=== PATIENT | female | born 1955 | race Hispanic/Latino ===

== ENCOUNTER → 2019-05-16 | Day surgery (SDC) | payer MEDICARE ==
[2019-05-15 10:31] LABS: BASOPHILS % 0.6 % (0.0-1.0); EOSINOPHILS # (AUTO) 0.2 (0.0-0.4); HEMATOCRIT 40.7 % (34.2-44.1); HEMOGLOBIN 13.6 g/dL (12.0-16.0); LYMPHOCYTES % 30.3 % (18.0-39.1); MEAN CORPUSCULAR HEMOGLOBIN 31.1 pg (28-32); MEAN CORPUSCULAR HGB CONC 33.4 g/dL (31-35); MEAN CORPUSCULAR VOLUME 92.9 fL (81-99); MONOCYTES # (AUTO) 0.6 (0.2-0.8); MONOCYTES % 9.3 % (4.4-11.3); NEUTROPHILS # (AUTO) 3.8 (2.1-6.9); NEUTROPHILS % 56.5 % (38.7-80.0); PLATELET COUNT 307 x10e3/uL (140-360); RED BLOOD COUNT 4.38 x10e6/uL (3.6-5.1); RED CELL DISTRIBUTION WIDTH 13.6 % (11.7-14.4)
--- NOTE | 2019-05-15 10:43 | Diagnostic Imaging Report ---
Chest, PA and lateral. History: Preoperative evaluation for neurologic surgery. Comparison: None available. Discussion: The cardiomediastinal silhouette and pulmonary vasculature are within normal limits. The thoracic aorta demonstrates atherosclerotic calcifications. The lungs are clear without evidence of consolidation or effusion. There are no acute osseous abnormalities. IMPRESSION: No radiographic evidence of acute cardiopulmonary abnormality. Signed by: Jim Aguilar MD on 05/15/2019 10:40 AM
[~2019-05-16] MED LIST: AMLODIPINE BESYL5 MG PO; CEFTRIAXONE SOD 1 GM/NS 50 ML 50 ML IV ONE; DOCUSATE SODIU100 MG PO; FENTANYL CITRATE/PF 100MCG/2 ML INJ ONE; HYDROXYCHLOROQ200 MG PO; IOPAMIDOL 300MG/ML 50ML INFUS..BTL IV ONE; LIDOCAINE HCL 2% LOCAL INJ 5 ML SDV VIAL INJ ONE; LOSARTAN POTASS25 MG PO; MELOXICAM7.5 MG PO; PANTOPRAZOLE SO40 MG PO; PROPOFOL IV EMULSION 10 MG/ML 20 ML VIAL ONE
--- OUTSIDE RECORDS SUMMARY | 2019-05-16 06:49 | XMS REPORT ---
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 Allergies, Adverse Reactions, Alerts This patient has no known allergies or adverse reactions. Medications This patient has no known medications. Results Test Description Test Time Test Comments Text Results Atomic Results Result Comments CHEST 2 VIEWS 2019-05-15 10:39:00 [facility] [address] [address] Patient Name: REGIS LOMELI MR #: [id number] : 1955 Age/Sex: 63/F Req #: [id number] Adm Physician: Ordered by: ZAY GOMEZ MD Report #: [id number] Location: OR Room/Bed: Procedure: [id number] DX/CHEST 2 VIEWS Exam Date: 05/15/19 Exam Time: 1020 REPORT STATUS: Signed Chest, PA and lateral. History: Preoperative evaluation f or neurologic surgery. Comparison: None available. Discussion: The cardiomediastinal silhouette and pulmonary vasculature are within normal limits. The thoracic aorta demonstrates atherosclerotic calcifications. The lungs are clear without evidence of consolidation or effusion. There are no acute osseous abnormalities. IMPRESSION: No radiographic evidence of acute cardiopulmonary abnormality. Signed by: Jim Flores MD on 05/15/2019 10:40 AM Dictated By: JIM FLORES MD 104 Transcribed By: SUHA on 05/15/191039 COPY TO: ZAY GOMEZ MD SCR MAMM BILATERAL FLAVIO CAD DIGITAL 2019-03-10 15:02:33 - SCR MAMM BILATERAL FLAVIO CAD DIGITALBILATERAL DIGITAL SCREENING MAMMOGRAM 3D/2D WITH CAD: 03/08/2019CLINICAL: Asymptomatic. Digital breast tomosynthesis was performed in addition to routine CC and MLO views. Current mammographic images were evaluated by either a [employer] M-Vu or a [employer] ImageChecker CAD (computer aided detection system). Comparison is made to exams dated 09/16/2014 mammogram, 2013 mammogram, and 06/17/2012 mammogram - [facility]. There are scattered fibroglandular tissues in both breasts. No suspicious mass, architectural distortion, malignant type calcification, or lymph node abnormality detected. Breast architecture is stable compared to prior exams.IMPRESSION: NEGATIVEThere is no mammographic evidence of malignancy. Resume annual screening mammography in one year. Sarah aguila/angela:03/10/2019 15:02:33 Purchasing Internship: Shahana ZHONG, [facility] sent: BIRADS 1-2 Normal Mammogram BI-RADS: 1 Nega tikylah
[2019-05-16 10:20] VITALS: BP 142/80
--- NOTE | 2019-05-16 21:24 | Operative Report ---
DATE OF PROCEDURE: 05/16/2019 SURGEON: Yon Atkinson MD PREOPERATIVE DIAGNOSIS: Microscopic hematuria. POSTOPERATIVE DIAGNOSIS: Microscopic hematuria. PROCEDURES: 1. Cystourethroscopy with left ureteral catheterization, left retrograde pyelogram. 2. Cystourethroscopy with right ureteral catheterization, right retrograde pyelogram. 3. Supervision of fluoroscopy. 4. Interpretation of retrograde pyelography. ANESTHESIA: General. ESTIMATED BLOOD LOSS: Minimal. COMPLICATIONS: None. INDICATIONS FOR PROCEDURE: Mrs. Ellis is a very pleasant 63-year-old female with history of recurrent microscopic hematuria. She and I had a long discussion about alternatives, risks, and benefits including doing nothing, cystoscopy, IVP, retrograde pyelograms, and renal ultrasound. She voiced understanding options, the alternatives the risks, and the benefits and elected to proceed. PROCEDURE IN DETAIL: After informed consent was obtained, the patient was taken to the operative suite, and placed supine on the operating table, underwent general anesthesia by the Anesthesia Service and was placed in dorsal lithotomy position ans sterilely prepped and draped in standard fashion for cystoscopy. Of note, a grade 3 cystocele, rectocele, and prolapse were seen. There was positive vaginal atrophy. The urethra was catheterized with a 21-Mongolian cystoscope. Panendoscopy of bladder revealed no tumors, no stones. Both ureteral orifices were in normal anatomic location and position and were seen to efflux clear urine. Bilateral retrograde pyelograms were performed, which were normal. Bladder was drained. The patient was awakened from anesthesia and transferred to recovery room in excellent condition. Supervision of fluoroscopy interpretation ventriculography: I was present for the entire procedure and supervised fluoroscopy. There was no radiologist present. Attention was turned to the left and right ureteral orifices, which were catheterized with 8-Mongolian cone-tipped catheter. In retrograde fashion, contrast was injected revealing delicate ureters, delicate pelvocaliceal systems, no evidence of filling defects. No evidence of hydronephrosis. IMPRESSION: Normal retrograde pyelograms. MD CLAUDIA Harris/MODL /[id number] cc: Rajinder Geiger
== END | disposition home or self-care (01) ==
LOC: OR 06:46
PROVIDERS: ATTEND Urology
DX: R31.29 Other microscopic hematuria (principal); N81.4 Uterovaginal prolapse, unspecified; N95.2 Postmenopausal atrophic vaginitis; I10 Essential (primary) hypertension; K21.9 Gastro-esophageal reflux disease without esophagitis; K28.9 Gastrojejunal ulcer, unspecified as acute or chronic, without hemorrhage or perforation; K58.9 Irritable bowel syndrome, unspecified; Z01.810 Encounter for preprocedural cardiovascular examination; Z01.812 Encounter for preprocedural laboratory examination; Z01.818 Encounter for other preprocedural examination
CPT/HCPCS: 36415; 52005; 71046; 74420; 85025; 93005; C1758; J0696; J2001; J2704; J3010; Q9967

== ENCOUNTER 2021-12-28 07:49 | Inpatient (IN) | payer MEDICARE ==
[2021-12-27 13:46] LABS: BASOPHILS % 0.4 % (0.0-1.0); EOSINOPHILS # (AUTO) 0.1 (0.0-0.4); EOSINOPHILS % 1.7 % (0.0-6.0); HEMATOCRIT 41.7 % (34.2-44.1); HEMOGLOBIN 14.1 g/dL (12.0-16.0); LYMPHOCYTES # (AUTO) 2.3 (1.0-3.2); LYMPHOCYTES % 31.7 % (18.0-39.1); MEAN CORPUSCULAR HGB CONC 33.8 g/dL (31-35); MEAN CORPUSCULAR VOLUME 91.6 fL (81-99); MONOCYTES # (AUTO) 0.6 (0.2-0.8); MONOCYTES % 8.1 % (4.4-11.3); NEUTROPHILS # (AUTO) 4.2 (2.1-6.9); PLATELET COUNT 277 x10e3/uL (140-360); RED BLOOD COUNT 4.55 x10e6/uL (3.6-5.1); RED CELL DISTRIBUTION WIDTH 13.2 % (11.7-14.4)
[2021-12-27 14:13] LABS: ANION GAP 14.1 mmol/L (8-16); CALCIUM 8.8 mg/dL (8.4-10.2); CREATININE, SERUM 0.72 mg/dL (0.57-1.11); POTASSIUM 4.1 mmol/L (3.5-5.1)
[~2021-12-28] VITALS: Ht 157.5 cm; Wt 77.1 kg
[~2021-12-28 07:49] MED LIST changes: -CEFTRIAXONE SOD 1 GM/NS 50 ML 50 ML IV ONE; +CENTRUM ADULTS1 EACH PO; -FENTANYL CITRATE/PF 100MCG/2 ML INJ ONE; -IOPAMIDOL 300MG/ML 50ML INFUS..BTL IV ONE; -LIDOCAINE HCL 2% LOCAL INJ 5 ML SDV VIAL INJ ONE; -PROPOFOL IV EMULSION 10 MG/ML 20 ML VIAL ONE
[2021-12-28] MEDS ORDERED: GENTAMICIN 80MG/NS 100 ML 200 ML IV ONE (08:35)
[2021-12-28] MEDS ORDERED: PIPERACILLIN/TAZOBACTAM 3.375 GM VIAL ONE (08:36)
[2021-12-28] MEDS ORDERED: LIDOCAINE 2% /EPINEPHRINE 20 ML SDV INJ ONE (09:57)
[2021-12-28] MEDS ORDERED: BUPIVACAINE 0.25% 30ML SDV ONE (09:57)
[2021-12-28] MEDS ORDERED: IOPAMIDOL 610MG/1ML 300 MG/ML VIAL IV ONE (09:57)
[2021-12-28] MEDS ORDERED: GENTAMICIN SULFATE 40 MG/ML 2 ML VIAL ONE (09:57)
[2021-12-28] MEDS ORDERED: SILVER SULFADIAZINE 50GM CREAM ONE (10:11)
[2021-12-28] MEDS ORDERED: SEVOFLURANE INHAL SOLN 250 ML PEN BTL ONE (11:56)
[2021-12-28] MEDS ORDERED: PROPOFOL IV EMULSION 10 MG/ML 20 ML VIAL ONE (11:56)
[2021-12-28] MEDS ORDERED: DEXAMETHASONE SOD PHOS INJ 4 MG/ML SDV ONE (11:56)
[2021-12-28] MEDS ORDERED: POVIDONE IODINE 0.05% 0.05 % ML PO ONE (11:56)
[2021-12-28] MEDS ORDERED: ONDANSETRON HCL INJ 2MG/ML 2ML 2 MG/ML VIAL ONE (11:56)
[2021-12-28] MEDS ORDERED: LIDOCAINE HCL 2% LOCAL INJ 5 ML SDV VIAL INJ ONE (11:56)
[2021-12-28] MEDS ORDERED: FENTANYL CITRATE/PF 100MCG/2 ML INJ ONE (12:35)
[2021-12-28] MEDS ORDERED: MIDAZOLAM HCL 2 MG/2 ML VIAL ONE (12:35)
[2021-12-28] MEDS ORDERED: ONDANSETRON HCL INJ 2MG/ML 2ML 2 MG/ML VIAL IV PRN (13:45)
[2021-12-28] MEDS ORDERED: Morphine 2mg Syringe 2 MG/ML SYR IV PRN (13:45)
[2021-12-28] MEDS ORDERED: DIPHENHYDRAMINE HCL 25 MG CAP PO PRN (13:45)
[2021-12-28] MEDS ORDERED: ACETAMINOPHEN/CODEINE 300MG - 30MG TAB PO PRN (13:45)
[2021-12-28] MEDS ORDERED: PHENAZOPYRIDINE HCL 100 MG TAB PO PRN (13:45)
[2021-12-28 15:11] LABS: BASOPHILS % 0.2 % (0.0-1.0); EOSINOPHILS % 0.2 % (0.0-6.0); HEMATOCRIT 39.9 % (34.2-44.1); HEMOGLOBIN 13.2 g/dL (12.0-16.0); LYMPHOCYTES % 10.4 % (18.0-39.1); MEAN CORPUSCULAR HEMOGLOBIN 31.3 pg (28-32); MEAN CORPUSCULAR HGB CONC 33.1 g/dL (31-35); MEAN CORPUSCULAR VOLUME 94.5 fL (81-99); MONOCYTES # (AUTO) 0.1 (0.2-0.8); MONOCYTES % 1.5 % (4.4-11.3); NEUTROPHILS # (AUTO) 8.3 (2.1-6.9); NEUTROPHILS % 87.4 % (38.7-80.0); PLATELET COUNT 252 x10e3/uL (140-360); RED BLOOD COUNT 4.22 x10e6/uL (3.6-5.1); RED CELL DISTRIBUTION WIDTH 13.4 % (11.7-14.4)
[2021-12-28 15:37] LABS: ANION GAP 12.6 mmol/L (8-16); CALCIUM 8.3 mg/dL (8.4-10.2); CREATININE, SERUM 0.75 mg/dL (0.57-1.11); POTASSIUM 4.6 mmol/L (3.5-5.1)
[2021-12-28] MEDS: DOCUSATE SODIUM 100 MG CAP PO SCH (17:00)
[2021-12-28] MEDS: ACETAMINOPHEN 1000 MG/100 ML IV PRN ×2 (17:25→21:21)
[2021-12-28] MEDS ORDERED: ACETAMINOPHEN 1000 MG/100 ML 100 ML IV ONE (17:35)
[2021-12-28 20:00] VITALS: BP 120/70
[2021-12-28] MEDS: D5.45%NS/KCL 20MEQ 1,000 ML IV SCH (21:20)
[2021-12-28 21:30] VITALS: BP 120/70
[2021-12-29] VITALS (7 sets, daily range): BP systolic 98–139; BP diastolic 53–93
[2021-12-29] MEDS: D5.45%NS/KCL 20MEQ 1,000 ML IV SCH ×3 (05:54→16:19)
[2021-12-29 06:43] LABS: BASOPHILS % 0.2 % (0.0-1.0); HEMATOCRIT 35.7 % (34.2-44.1); LYMPHOCYTES # (AUTO) 1.9 (1.0-3.2); LYMPHOCYTES % 13.6 % (18.0-39.1); MEAN CORPUSCULAR HEMOGLOBIN 30.9 pg (28-32); MEAN CORPUSCULAR HGB CONC 33.6 g/dL (31-35); MONOCYTES # (AUTO) 1.1 (0.2-0.8); MONOCYTES % 7.8 % (4.4-11.3); NEUTROPHILS # (AUTO) 11.1 (2.1-6.9); NEUTROPHILS % 77.8 % (38.7-80.0); PLATELET COUNT 248 x10e3/uL (140-360); RED BLOOD COUNT 3.88 x10e6/uL (3.6-5.1); RED CELL DISTRIBUTION WIDTH 13.4 % (11.7-14.4)
[2021-12-29 07:03] LABS: ANION GAP 13.1 mmol/L (8-16); CALCIUM 8.4 mg/dL (8.4-10.2); CREATININE, SERUM 0.74 mg/dL (0.57-1.11); POTASSIUM 4.1 mmol/L (3.5-5.1)
[2021-12-29] MEDS: DOCUSATE SODIUM 100 MG CAP PO SCH ×2 (09:52→16:34)
[2021-12-29] MEDS ORDERED: ONDANSETRON HCL 4 MG ORAL DISINTEGRATING TAB PO PRN (11:45)
[2021-12-30] VITALS: BP 130/67
[2021-12-30] MEDS: D5.45%NS/KCL 20MEQ 1,000 ML IV SCH (01:12)
[2021-12-30 04:00] VITALS: BP 126/69
[2021-12-30 06:08] LABS: BASOPHILS % 0.3 % (0.0-1.0); EOSINOPHILS # (AUTO) 0.1 (0.0-0.4); EOSINOPHILS % 1.1 % (0.0-6.0); HEMATOCRIT 34.5 % (34.2-44.1); HEMOGLOBIN 11.5 g/dL (12.0-16.0); LYMPHOCYTES # (AUTO) 2.4 (1.0-3.2); LYMPHOCYTES % 23.1 % (18.0-39.1); MEAN CORPUSCULAR HEMOGLOBIN 31.3 pg (28-32); MEAN CORPUSCULAR HGB CONC 33.3 g/dL (31-35); MONOCYTES % 9.8 % (4.4-11.3); NEUTROPHILS # (AUTO) 6.8 (2.1-6.9); NEUTROPHILS % 65.3 % (38.7-80.0); PLATELET COUNT 225 x10e3/uL (140-360); RED BLOOD COUNT 3.67 x10e6/uL (3.6-5.1); RED CELL DISTRIBUTION WIDTH 13.4 % (11.7-14.4)
[2021-12-30 06:32] LABS: CALCIUM 8.3 mg/dL (8.4-10.2); CREATININE, SERUM 0.76 mg/dL (0.57-1.11)
[2021-12-30 08:00] VITALS: BP 126/69
[2021-12-30 08:38] VITALS: BP 126/66
[2021-12-30] MEDS: DOCUSATE SODIUM 100 MG CAP PO SCH (08:55)
[2021-12-30 12:21] VITALS: BP 136/73
[2021-12-30] MEDS ORDERED: KETOROLAC TROME10 MG (13:41)
[2021-12-30] MEDS ORDERED: LEVOFLOXACIN250 MG PO (13:42)
== END 2021-12-30 14:30 | disposition home or self-care (01) | DRG 748 ==
LOC: OR 07:49 → PACU V 13:38 → MED/SURG2 18:43
PROVIDERS: ADMIT Internal Medicine; ATTEND Internal Medicine
PROC: BT141ZZ Fluoroscopy of Kidneys, Ureters and Bladder using Low Osmolar Contrast (ICD-10-PCS; 2021-12-28)
PROC: 0JUC0KZ Supplement of Pelvic Region Subcutaneous Tissue and Fascia with Nonautologous Tissue Substitute, Open Approach (ICD-10-PCS; principal; 2021-12-28 11:59)
PROC: 0TSD0ZZ Reposition Urethra, Open Approach (ICD-10-PCS; 2021-12-28 11:59)
DX: N81.10 Cystocele, unspecified (principal); R31.29 Other microscopic hematuria; N81.89 Other female genital prolapse; N81.6 Rectocele; N95.2 Postmenopausal atrophic vaginitis; N28.1 Cyst of kidney, acquired; N39.41 Urge incontinence; R39.14 Feeling of incomplete bladder emptying; I10 Essential (primary) hypertension; E66.9 Obesity, unspecified; Z68.31 Body mass index [BMI] 31.0-31.9, adult; Z20.822 Contact with and (suspected) exposure to COVID-19; Z87.440 Personal history of urinary (tract) infections
CPT/HCPCS: 0223U; 36415; 71046; 74420; 80048; 83735; 85025; 93005; 94799; 96361; C1713; C1752; C1758; J1100; J1580; J2001; J2250; J2405; J2543; J3010

== ENCOUNTER → 2022-11-28 | Day surgery (SDC) | payer MEDICARE ==
[~2022-11-28] MED LIST changes: +FENTANYL CITRATE/PF 100MCG/2 ML INJ ONE; +KETOROLAC TROME10 MG; +LACTATED RINGER'S 1,000 ML ONE; +LEVOFLOXACIN250 MG PO; +MIDAZOLAM HCL 2 MG/2 ML VIAL ONE; +OR PHACO EYE KIT ONE; +PREOP PHACO EYE KIT ONE; +VITAMIN C1000 MG PO; +VITAMIN D3 COM1 EACH PO
[2022-11-28 08:26] VITALS: TEMP 97.2
[2022-11-28 08:40] VITALS: BP 134/74; PULSE 59; RESP 17; O2SAT 100
== END | disposition home or self-care (01) ==
LOC: OR 07:36
PROVIDERS: ATTEND Ophthalmology
DX: H25.12 Age-related nuclear cataract, left eye (principal); I10 Essential (primary) hypertension; R73.03 Prediabetes; K59.00 Constipation, unspecified; K21.9 Gastro-esophageal reflux disease without esophagitis; I83.90 Asymptomatic varicose veins of unspecified lower extremity; G89.29 Other chronic pain; M19.90 Unspecified osteoarthritis, unspecified site; Z79.899 Other long term (current) drug therapy; Z86.73 Personal history of transient ischemic attack (TIA), and cerebral infarction without residual deficits
CPT/HCPCS: 66984; J2250; J3010; J7121; V2632